=== PATIENT | male | born 1970 | race Caucasian/White ===

== ENCOUNTER → 2018-01-10 12:20 | Outpatient (CLI) | payer OTHER, SELFPAY ==
[2018-01-10 15:02] LABS: T4 Free Direct 0.95 ng/dL (0.76-1.46); Thyroid Stim Hormone (TSH) 4.16 uIU/mL (0.358-3.74)
[2018-01-14 12:07] LABS: Testosterone, Free 15.87 ng/dL (5.00-21.00)
[2018-01-15 08:56] LABS: Testosterone, % Free 2.86 % (1.50-4.20); Testosterone, Total 555 ng/dL (264-916)
== END ==
PROVIDERS: Family Provider Family Medicine; PCP Family Medicine; Visit Provider Family Medicine
DX: E03.9 Hypothyroidism, unspecified (principal); R53.83 Other fatigue
CPT/HCPCS: 36415; 84402; 84403; 84439; 84443

== ENCOUNTER → 2018-05-01 13:52 | Outpatient (CLI) | payer OTHER, SELFPAY ==
[2018-05-01 15:55] LABS: Thyroid Stim Hormone (TSH) 1.84 uIU/mL (0.358-3.74)
--- OUTSIDE RECORDS SUMMARY | 2018-07-06 10:47 | XMS RPT_ITS ---
:1970 Author Organization OHIP Care Team Providers Name Role Phone Shaq Kiran Attending Unavailable Shaq Kiran Primary Care Unavailable Shaq Kiran Attending Unavailable Shaq Kiran Primary Care Unavailable WILFREDO HOPE Attending Unavailable MURIEL V, VERENICE TUTU Attending Unavailable SHAQ KIRAN Referring Unavailable MURIEL V, VERENICE TUTU Referring Unavailable SHAQ KIRAN Primary Care Unavailable WILFREDO HOPE Attending Unavailable MURIEL, VERENICE-TUTU Attending Unavailable SHAQ KIRAN Referring Unavailable SHAQ KIRAN Primary Care Unavailable MURIEL, VERENICE-TUTU Referring Unavailable SHAQ KIRAN Primary Care Unavailable MURIEL, VERENICE-TUTU Referring Unavailable SHAQ KIRAN Primary Care Unavailable PROBLEMS PROBLEMS DATE TYPE CONDITION / CODE ATTENDING STATUS SOURCE 05/01/2018 Unknown E03.9 - Magno, Sandy 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) [facility] Repository 01/29/2018 Admitting Unknown / NA Active [facility] diagnosis UNK(Unknown) Health System Repository 01/25/2018 Active Personal history of WILFREDO HOPE Active Lohman diseases of the Clinic Other blood and [facility] blood-forming Repository organs and certain disorders involving the immune mechanism / Z86.2(ICD-10) 01/25/2018 Active Postprocedural WILFREDO HOPE Active Ball hemorrhage of a Clinic Other digestive system [facility] organ or structure Repository following a digestive system procedure / K91.840(ICD-10) PROCEDURES PROCEDURES No Procedure Records FoundRESULTS RESULTS THYROID STIM HORMONE Collected: 05/01/2018 Status: F Source: [facility] (TSH) 2:24 PM [facility] REPOSITORY TYPE CODE TESTS RESULT OUT OF RANGE REFERENCE UNITS LAB L501.9520 0.358-3.74 uIU/mL Normal TSH 1.84 Performed By: #### L501.9520 #### [facility] [address] [place], [place], [id number] ONCOLOGY VENIPUNCTURE Collected: 01/29/2018 Status: F Source: [facility] 10:15 AM HEALTH SYSTEM REPOSITORY TYPE CODE TESTS RESULT OUT OF REFERENCE UNITS RANGE LAB OVENP(LOIN C) Oncology Venipuncture COMPLETED Performed By: #### OVENP #### [address] [address] MISC. TEST Collected: 01/29/2018 Status: F Source: [facility] 10:15 AM HEALTH SYSTEM REPOSITORY TYPE CODE TESTS RESULT OUT OF REFERENCE UNITS RANGE LAB GO3X(LOINC) Test Name FACTOR IX:C LAB GO1X(LOINC) [facility] Order FIXC Code LAB GO2X(LOINC) Misc. Test SEE BELOW Result Result Comment: Factor IX:C Assay 3 L 77-173 % Result rechecked. Reviewed by Sherrie Wilson M.D.,Ph.D ([id number]) Called to and read back by: Valentin Damon [facility] 01/31/18 Cassidy Oseguera Performing Laboratory: [facility] [address] [place] [address] Performed By: #### GOX #### [place] [id number] PROGRESS Observed: 01/29/2018 Status: COMPLETED Source: [facility] 9:52 AM CLINIC OTHER CAMPUS REPOSITORY HNO ID: [id number] Author: Verenice Llamas Service: (none) Author Type: Physician Type: Progress Notes Filed: 01/30/2018 4:08 PM Note Text: INITIAL CONSULT Angela Mays 1970 January 29, 2018 HPI: Angela Mays is a 47 year old male who presents after a dental procedure with bleeding: diagnosed at age 9: Had bleeding after Adenoid surgery: When seen today bleeding has stopped: Will order Factor IX levels. Pathology Cancer Staging No matching staging information was found for the patient. PAST MEDICAL HISTORY Diagnosis Date - Toxic diffuse goiter without mention of thyrotoxic crisis or storm No past surgical history on file. Current Outpatient Prescriptions: levothyroxine (LEVOXYL) 100 mcg tablet Take 122 mcg by mouth once daily. Disp: Rfl: No current facility-administered medications for this visit. ALLERGIES Allergen Reactions - Asa [Salicylates] Hemophilia No family history on file. Social History Marital status: Spouse name: Years of education: Number of children: Social History Main Topics Smoking status: Never Smoker Smokeless tobacco: Never Used Alcohol use: Yes Comment: rare Review of Systems: Constitutional: No fevers, chills, drenching night sweats or unintentional weight loss. HEENT: No yellowing of the eyes, no vision changes, no hearing loss or ear pain, no nosebleeds or drainage, no sore throat. Neck: No complaints. Chest: No SOB or cough, no LOPES, no hemoptysis, no wheezing. Breast: No complaints. Heart: No chest pain, pressure or tightness. No racing heartbeat. Abdominal: No pain or difficulty with swallowing, no N/V, no early satiety, no abdominal pain or bloating, no diarrhea or constipation, no change in bowel habits, no blood in the urine. Genitourinary: No pain or burning with urination, no incontinence, no blood in the urine. Extremities: no pain or swelling. Neurological: No headaches, no numbness or tingling in the extremities, no double vision. Skin: No rashes or ulcerations, no change in pigmentation. Nodes: no enlargement per patient. Heme: No easy bruising or bleeding, no yellowing of the eyes or darkening of urine. Psychiatric: no anxiety or depression. Immunologic: No recurrent or persistent infections of the sinuses, lungs or urinary tract. Endocrine: No hair or nail changes, no polyuria, polydipsia, or polyphagia. Appetite normal. Trending of last 3 clinical abnormalities associated with Severe Sepsis or Septic Shock 01/25/2018 2335 01/26/2018 0432 01/29/2018 0928 Temp: 36.4 ?C (97.5 ?F) - 36.6 ?C (97.9 ?F) Pulse: 74 62 69 Resp: 16 18 - BP: 156/82 133/93 110/70 O2 Sat: 97 % 100 % 99 % BP 110/70[left arm[ Pulse 69 Temp 97.9 Ht 5' 9 (1.75m) Wt 159 lb (72.1kg) SpO2 99% BMI 23.47 kg/(m2). Physical Exam: ECOG PS: 0 Pain Intensity: 0/10 General: Age-appropriate well developed. Appears well. HEENT: Normocephalic, no sclera icterus, external ears normal, oral cavity clear. Neck: Supple, no thyroid nodules, no JVD. Chest: Clear bilaterally, no wheezes, not labored. Heart: Normal S1 and S2, no abnormal sounds, peripheral pulses synchronized. Abdomen: Soft, nontender, nondistended, bowel sounds present, no organomegaly or mass, no rigidity. /Rectal: deferred Extremities: No cyanosis, clubbing, gross deformities, or palpable cords. Neurological: Cranial nerves II through XII are intact bilaterally, strength normal in the upper and lower extremities, no focal deficits. Skin: Warm and dry with no rashes or ulcerations. Nodes: No palpable adenopathy in the cervical, supraclavicular, infraclavicular, or axillary regions. Hematologic: no bruising or petechiae. Psychiatric: Alert and oriented x3. Emotional well-being assessment was performed. Pt denies depression, distress, and or problems with coping or adjustment. 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 Harpreet Llamas MD CNOVSP Observed: 01/29/2018 Status: COMPLETED Source: [facility] 9:45 AM CLINIC OTHER CAMPUS REPOSITORY Visit (SP) Office (HEMAPOB) ANGELA MAYS ([id number]) 1970 M Date Time Provider Department 01/29/18 9:45 AM VERENICE LLAMAS HEMAPOB During your visit today, we recorded the following information about you: Temperature Pulse Blood pressure Weight 97.9 degrees 69/minute 110/70 72.1 kg Height 1.753 m Harpreet Llamas MD 01/30/2018 4:08 PM Signed INITIAL CONSULT Angela Talaverafaviola 1970 January 29, 2018 HPI: Angela Mays is a 47 year old male who presents after a dental procedure with bleeding: diagnosed at age 9: Had bleeding after Adenoid surgery: When seen today bleeding has stopped: Will order Factor IX levels. Pathology Cancer Staging No matching staging information was found for the patient. PAST MEDICAL HISTORY Diagnosis Date - Toxic diffuse goiter without mention of thyrotoxic crisis or storm No past surgical history on file. Current Outpatient Prescriptions: levothyroxine (LEVOXYL) 100 mcg tablet Take 122 mcg by mouth once daily. Disp: Rfl: No current facility-administered medications for this visit. ALLERGIES Allergen Reactions - Asa [Salicylates] Hemophilia No family history on file. Social History Marital status: Spouse name: Years of education: Number of children: Social History Main Topics Smoking status: Never Smoker Smokeless tobacco: Never Used Alcohol use: Yes Comment: rare Review of Systems: Constitutional: No fevers, chills, drenching night sweats or unintentional weight loss. HEENT: No yellowing of the eyes, no vision changes, no hearing loss or ear pain, no nosebleeds or drainage, no sore throat. Neck: No complaints. Chest: No SOB or cough, no LOPES, no hemoptysis, no wheezing. Breast: No complaints. Heart: No chest pain, pressure or tightness. No racing heartbeat. Abdominal: No pain or difficulty with swallowing, no N/V, no early satiety, no abdominal pain or bloating, no diarrhea or constipation, no change in bowel habits, no blood in the urine. Genitourinary: No pain or burning with urination, no incontinence, no blood in the urine. Extremities: no pain or swelling. Neurological: No headaches, no numbness or tingling in the extremities, no double vision. Skin: No rashes or ulcerations, no change in pigmentation. Nodes: no enlargement per patient. Heme: No easy bruising or bleeding, no yellowing of the eyes or darkening of urine. Psychiatric: no anxiety or depression. Immunologic: No recurrent or persistent infections of the sinuses, lungs or urinary tract. Endocrine: No hair or nail changes, no polyuria, polydipsia, or polyphagia. Appetite normal. Trending of last 3 clinical abnormalities associated with Severe Sepsis or Septic Shock 01/25/2018 2335 01/26/2018 0432 01/29/2018 0928 Temp: 36.4 ?C (97.5 ?F) - 36.6 ?C (97.9 ?F) Pulse: 74 62 69 Resp: 16 18 - BP: 156/82 133/93 110/70 O2 Sat: 97 % 100 % 99 % BP 110/70[left arm[ Pulse 69 Temp 97.9 Ht 5' 9 (1.75m) Wt 159 lb (72.1kg) SpO2 99% BMI 23.47 kg/(m2). Physical Exam: ECOG PS: 0 Pain Intensity: 0/10 General: Age-appropriate well developed. Appears well. HEENT: Normocephalic, no sclera icterus, external ears normal, oral cavity clear. Neck: Supple, no thyroid nodules, no JVD. Chest: Clear bilaterally, no wheezes, not labored. Heart: Normal S1 and S2, no abnormal sounds, peripheral pulses synchronized. Abdomen: Soft, nontender, nondistended, bowel sounds present, no organomegaly or mass, no rigidity. /Rectal: deferred Extremities: No cyanosis, clubbing, gross deformities, or palpable cords. Neurological: Cranial nerves II through XII are intact bilaterally, strength normal in the upper and lower extremities, no focal deficits. Skin: Warm and dry with no rashes or ulcerations. Nodes: No palpable adenopathy in the cervical, supraclavicular, infraclavicular, or axillary regions. Hematologic: no bruising or petechiae. Psychiatric: Alert and oriented x3. Emotional well-being assessment was performed. Pt denies depression, distress, and or problems with coping or adjustment. Labs No results found for: HB, HCT, WBC No results found for: GLUC, K, NA, CHLOR, CO2, CREAT, BUN, ANION, CA, TPROT, ALB, TBILI, ALKPHOS, AST, ALT CBC with diff: No results found for this basename: WBC,RBC,HB,HCT,MCV,MCH,MCHC,RDWCV,PLT,MPV,NEUTP,LYMPHP,MONOP,EODINP,BASOP,ABSNE- UT,ABSLYM,ABSMONO,ABSEOSIN,ABSBASO ASSESSMENT/PLAN: 1. 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 Said he was seen in an ER recently and they would not give him some medicine he wanted. Has not seen anyone here in years but would like to see someone as soon as possible and/or get an appropriate referral to where he would be best suited. Please advise, Thank you, Robbin Ramirez Psr Radha Beavers LPN 01/28/2018 8:44 AM Signed Spoke with patient. He has never been seen here. History of hemophilia but has not had a burrer operator since childhood. Had tooth extraction 01/23/2018 and has some bleeding. Dentist aware and patient was instructed to hold pressure. Was seen in [facility] ED 01/25/2018, they applied TXA topically and did not feel that a factor 9 transfusion was necessary. Patient was instructed upon discharge from ED to follow up with PCP and Dr. Peg Berg (Hem/Onc). Reiterated these instructions with the patient with verbalized understanding. Radha Kohler Psr 01/28/2018 8:39 AM Signed 1st attempt to reach patient. Left message to return office call. Viridiana Antunez LPN, ROEL 01/28/2018 10:20 AM Signed Office contacted by Dr. Kiran office, requesting pt. Be seen today. Referred to Dr. Peg Berg office, as pt needs factor 5, which we do not carry here. Dr. Kiran office given phone number to contact them. Viridiaan Antunez LPN Allergies As of Date: 01/28/2018 Noted Allergy Reaction ASA (SALICYLATES) 05/03/2005 Comments: Hemophilia Date Reviewed: 01/25/2018 Reviewed by: Fabrizio (Rn) MICHOACANO Alejandre - Fully Assessed Reason for Visit: Question [1327] Prescriptions as of 01/28/2018 Sig: LEVOTHYROXINE 100 MCG TABLET Take 122 mcg by mouth once da* Problem List As Of Date 01/28/2018 Noted Resolved POSTABLAT HYPOTHYR NEC [E89.0] Encounter Status:Closed by RADHA BEAVERS LPN on 01/28/18 ED NOTE Observed: 01/26/2018 Status: COMPLETED Source: [place] 4:21 AM [facility] REPOSITORY HNO ID: [id number] Author: Sweetie Guerrero RN Service: Nursing Author Type: Registered Nurse Type: ED Notes Filed: 01/26/2018 4:32 AM Note Text: Dr Glass at bedside for medication. ED NOTE Observed: 01/26/2018 Status: COMPLETED Source: [place] 3:40 AM [facility] REPOSITORY HNO ID: [id number] Author: Sweetie Guerrero RN Service: Nursing Author Type: Registered Nurse Type: ED Notes Filed: 01/26/2018 3:40 AM Note Text: Patient appears to be resting comfortably in bed. No complaints at this time. Bed in lowest position and locked. Call light within reach. Will continue to monitor. ED NOTE Observed: 01/26/2018 Status: COMPLETED Source: [place] 1:24 AM [facility] OTHER [place] REPOSITORY HNO ID: [id number] Author: Sweetie Vargas) MICHOACANO Guerrero Service: Nursing Author Type: Registered Nurse Type: ED Notes Filed: 01/26/2018 1:28 AM Note Text: Dr Glass notified of cyklokapron at bedside. ED PROV NOTE Observed: 01/26/2018 Status: COMPLETED Source: [place] 12:21 AM [facility] REPOSITORY HNO ID: [id number] Author: Nilda Glass MD Service: Emergency Medicine Author Type: Resident Type: ED Provider Notes Filed: 01/26/2018 8:03 AM Note Text: Attestation signed by Wilfredo Hope DO at 01/28/2018 11:18 PM Signature: Wilfredo Hope DO Date: 01/28/2018 Time: 11:17 PM ED Provider Note Patient Name: Angela Mays SERVICE DATE: 01/25/18 History Patient presents with: Post Op Bleeding: Pt states he has a tooth pulled on Sunday AND has had intermittent bleeding ever since. Pt has a hx hemophilia. 47 yo male with PMHx hemophilia type B presents for bleeding after dental extraction. 2 days ago had left lower posterior molar removed. Since then has had slow oozing of bright red blood. Patient has been applying pressure with guaze and has tried using tea bags which has worked in the past for minor tongue lacerations. States that whenever he removes the guaze the clot that had formed falls off and fresh blood oozes out. Patient followed up with dentist today who recommended continuing to apply pressure. Patient called the pharmacy here for advise about other things to try and was told to present to the ED for evaluation. No significant pain at extraction site, swelling, or purulent drainage. No associated headache, lightheadedness, chest pain, shortness of breath. No other bleeding such as hematuria or blood in stool. Patient states he has only had a bleeding issue once as a child when he was diagnosed and transfused factor 9, since then as not had any major bleeding issues. Does not currently have a burrer operator. PAST MEDICAL HISTORY Diagnosis Date - Toxic diffuse goiter without mention of thyrotoxic crisis or storm No past surgical history on file. No family history on file. Social History Social History Main Topics - Smoking status: Never Smoker - Smokeless tobacco: Never Used - Alcohol use Yes Comment: rare - Drug use: Unknown - Sexual activity: Not on file ALLERGIES Allergen Reactions - Asa [Salicylates] Hemophilia Review of Systems Constitutional: Negative for fever. HENT: Positive for dental problem (bleeding from tooth extraction). Negative for sore throat. Respiratory: Negative for shortness of breath. Cardiovascular: Negative for chest pain. Gastrointestinal: Negative for abdominal pain, blood in stool, nausea and vomiting. Genitourinary: Negative for dysuria and hematuria. Musculoskeletal: Negative for arthralgias and myalgias. Skin: Negative for color change, pallor and rash. Neurological: Negative for dizziness, syncope, weakness, numbness and headaches. Physical Exam BP 156/82 Pulse 74 Temp (Src) 97.5 (Oral) Resp 16 Ht 5' 9 (1.75m) Wt 165 lb (74.8kg) SpO2 97% BMI 24.36 kg/(m2). Physical Exam Constitutional: He appears well-developed. No distress. HENT: Head: Normocephalic and atraumatic. Left lower posterior gum with post dental extraction sutures, small area to medial aspect with bright red bleeding beneath small clot Eyes: Pupils are equal, round, and reactive to light. Conjunctivae and EOM are normal. Neck: Normal range of motion. Cardiovascular: Normal rate, regular rhythm, normal heart sounds and intact distal pulses. Pulmonary/Chest: Effort normal and breath sounds normal. He has no wheezes. He exhibits no tenderness. Abdominal: Soft. Bowel sounds are normal. He exhibits no distension. There is no tenderness. Musculoskeletal: Normal range of motion. He exhibits no edema. Lymphadenopathy: He has no cervical adenopathy. Neurological: He is alert. No cranial nerve deficit. He exhibits normal muscle tone. Skin: Skin is warm and dry. Capillary refill takes less than 2 seconds. Vitals reviewed. Diagnostic Testing ED Labs Ordered and Reviewed - No data to display Procedures ED Course / Clinical Impression Clinical Impressions as of Jan 26 719 History of hemophilia B Surgical wound hemorrhage after dental procedure MDM / Disposition / Plan 47 yo male with PMHx hemophilia type B presents for bleeding after dental extraction. Vital signs within normal limits. On physical exam left lower posterior gum line has post dental extraction sutures with small area of oozing blood under small clot. Patient has no associated symptoms or other physical findings of significant anemia. Discussed patient with ED pharmacist who explained trying topical measure for bleeding control. Patient is stable and does not need emergent factor 9 transfusion at this time. TXA applied topically to dental extraction site. On re-evaluation bleeding was controlled initially but then restated shortly afterwards. Discussed plan with patient to discharge home with TXA soaked gauze in place overnight into the morning before removal. Patient was not satisfied with plan. Had to explain to patient and his family why a factor 9 transfusion is still not indicated given bleeding is not severe and there are still topical interventions that can be tried. Applied guaze with both neosynephrin and TXA. On reevaluation bleeding controlled. Gauze left in place and patient instructed to remove after several hours. Given contact information for hematology for follow up. Return precautions discussed. The patient was DISCHARGED: Counseled patient and family regarding suspected diagnosis AND need for follow-up. Discharged home with verbal and written instructions. They were instructed to return as needed for persistent or worsening symptoms or any new concerns. Condition at time of disposition: stable SIGNATURE: MD Nilda Duffy (Res) MD Maria Luisa Resident 01/26/18 0803 Wilfredo Hope DO 01/28/18 2318 ED PROV NOTE Observed: 01/26/2018 Status: COMPLETED Source: [facility] 12:16 AM [facility] OTHER CAMPUS REPOSITORY O ID: [id number] Author: Wilfredo Hope DO Service: Emergency Medicine Author Type: Physician Type: ED Provider Notes Filed: 01/26/2018 12:20 AM Note Text: Attending Note I evaluated the patient and personally participated in the rao components. I agree with the resident's findings and plan as documented and have discussed the case and management of the patient's care with the resident. 47-year-old male with history of hemophilia B presents with bleeding from the left lower tooth after having an extraction done 2 days ago. The patient states that his dentist is aware that he has hemophilia B. He states that he has only required factor IX transfusion once as a child for a knee hemarthrosis. He states that he has been using teabags and gauze and is still having minor oozing. He did follow up with his dentist today who told him to continue using pressure with gauze. He denies any significant pain. He denies any difficulty breathing or swallowing. He has no other bleeding from any other site and no joint swelling. He was unsure if he required factor IX at this point, so he presents for evaluation. On exam, vital signs reviewed. Patient is afebrile and nontoxic appearing. Alert and oriented ?3 answering questions appropriately. Skin is warm and dry with no rash or diaphoresis. No jaundice or scleral icterus. Posterior pharynx widely patent, uvula midline. There is no drooling stridor or trismus. There is very small amount of oozing with associated clot to the left lower second molar. There is no diffuse bleeding. There are sutures in place. Neck supple no JVD. Trachea midline. Head atraumatic and normocephalic. PERRLA, EOMI. Heart regular rate and rhythm with no murmurs rubs or gallops. Lungs clear bilaterally with no wheezing rales or rhonchi. Abdomen soft nontender no palpable masses or peritoneal signs. Bowel sounds present. Distal pulses intact and symmetric in all 4 extremities. No lower extremity edema. No unilateral leg swelling. Cranial nerves II through XII intact. Medical decision-makin-year-old male presenting with bleeding from the left lower second molar after extraction 2 days ago. Is not having significant pain, so I do not think there is any related alveolar osteitis. There is only very small amount of using, so we will attempt topical treatments first as opposed to going straight to factor IX. The patient will be reassessed after using topical coagulants. Wilfredo Hope DO 01/26/18 0020 ED TRIAGE NOTE Observed: 01/25/2018 Status: COMPLETED Source: [place] 11:37 PM [facility] OTHER CAMPUS REPOSITORY HNO ID: [id number] Author: Ladan Polanco Service: Emergency Medicine Author Type: Physician Hand Dry Cleaner Type: ED Triage Notes Filed: 01/25/2018 11:39 PM Note Text: ED INTAKE NOTE Patient Name: Angela Mays Service Date: 01/25/18 BRIEF HPI: Patient is a 47 y/o M who presents to the ED for an evaluation of mouth bleeding from where a tooth was extracted on Sunday. He reports it has been bleeding since then, but was significantly worse today. He reports it begins to clot and then comes off. He reports having a history of hemophilia. He denies being on blood thinners. BRIEF EXAM: Constitutional: Well developed, well nourished, NAD HEENT: Normocephalic, atraumatic, active bleeding from left lower tooth extraction, no trismus Respiratory: No respiratory distress Cardiac: RRR Neuro: AANDOx3 Skin: Warm and dry INTAKE WORKUP: Deferred SIGNATURE: Ladan Polanco PA-C THYROID STIM HORMONE Collected: 01/10/2018 Status: F Source: [place] (TSH) 12:25 PM [facility] REPOSITORY Order Comment: Order Date: 12/25/17 Order Info: 3016-3 - TSH Order Info: 3024-7 - T4F Has Patient had X-rays with Contrast this admission? N TYPE CODE TESTS RESULT OUT OF RANGE REFERENCE UNITS LAB L501.9520 0.358-3.74 uIU/mL High TSH 4.16 Performed By: #### L501.9520, L506.0400 #### [facility] [address] [place], [address] T4 FREE DIRECT Collected: 01/10/2018 Status: F Source: [place] 12:25 PM [facility] REPOSITORY Order Comment: Order Date: 12/25/17 Order Info: 3016-3 - TSH Order Info: 3024-7 - T4F Has Patient had X-rays with Contrast this admission? N TYPE CODE TESTS RESULT OUT OF RANGE REFERENCE UNITS LAB L506.0400 0.76-1.46 ng/dL Normal T4 FREE 0.95 DIRECT Performed By: #### L501.9520, L506.0400 #### [facility] [address] [place], [address] TESTOSTERONE, TOTAL / Collected: 01/10/2018 Status: F Source: [place] FREE 12:25 PM [facility] REPOSITORY Order Comment: Has Patient had X-rays with Contrast this admission? N TYPE CODE TESTS RESULT OUT OF RANGE REFERENCE UNITS LAB L3100.5320 264-916 ng/dL Normal 555 TESTOSTER,TO PAPA Result Comment: Adult male reference interval is based on a population of healthy nonobese males (BMI <30) between 19 and 39 years old. Estefania et.al. JCEM 2017,102;1523-1473. PMID: [id number]. LAB L3100.5340 5.00-21.00 ng/dL TESTOSTER,FREE Normal 15.87 LAB L3100.5360 1.50-4.20 % TESTOSTER %FREE Normal 2.86 Result Comment: Performed at: [facility] [id number] Dietary Tech: Bill Gorman PhD, Phone: [phone] Performed at: [facility] [id number] Dietary Tech: Bernardo Camacho MD, Phone: [phone] Performed By: #### L3100.5310 #### [facility] (refer to report for specific site) refer to report for address and phone number ALLERGIES ALLERGIES DATE TYPE / CODE NAME / CODE REACTION SEVERITY SOURCE 05/03/2005 Drug SALICYLATES [facility] Class/08928 Other [place] 1003(SNOMED Repository CT) [id number] SALICYLATES [place] [address]([email or web address] System CT) Repository ENCOUNTERS ENCOUNTERS ADMIT/DISCHARGE ACCOUNT NUMBER ADMITTING ENCOUNTER LOCATION SOURCE CLASS 05/01/[id number] [facility] ding:MFPLAB Repository 02/01/2018 [id number] Ambulatory [facility] MEDICAL Repository CENTERBuildi ng:AKCTC 01/29/2018 [id number] Ambulatory [facility] Repository 01/29/2018/01/30/20 [id number] Ambulatory [address] MEDICAL Repository CENTERBuildi ng:AKLPB 01/29/2018/01/30/20 [id number] Ambulatory [address] Repository 01/29/2018/01/30/20 [id number] Ambulatory [address] MEDICAL Repository CENTERBuildi ng:HEOP 01/25/2018/01/27/20 [id number] Emergency [address] Repository 01/25/2018/01/27/20 [id number] Emergency [address] MEDICAL Repository CENTERBuildi ng:AKEDRoom: EMBed: 23 01/10/2018 [id number] Ambulatory [facility] ding:MFPLAB Repository PAYERS PAYERS ENCOUNTER GUARANTOR PAYER SUBSCRIBER SOURCE 05/01/2018 Angela Mays1414 Primary EMELIA M [address]D[place] [place] [address], Insurance:[employer] [id number] [facility] [address]Sie: Number: [facility] [id number] Repository (HP) Date:[id number] [address], [place] [address]RR: 05/01/2018 [facility]LF [facility] Number: Effective Repository Date:2018-05-01 01/29/2018 ANGELA Mandujano Primary [facility] Insurance:CIGNA PAYER [id number] [facility] SOLUTIONS PPOPolicy Repository [address], Number: [id number]: [id number] Date: (HP) 01/29/2018 ANGELA Mandujano Primary EMELIA KAMPHDOB: [facility] KAMPHDOB: Insurance:CIGNA PAYER [id number] [facility] SOLUTIONS PPOPolicy Repository [address], Number: [id number]: [id number] Date: (HP) 01/25/2018 ANGELA Mandujano Primary EMELIA KAMPHDOB: [facility] KAMPHDOB: Insurance:CIGNA PAYER [id number] [facility] SOLUTIONS PPOPolicy Repository [address], Number: [id number]: [id number] Date: (HP) 01/10/2018 Angela Mays1414 Primary EMELIA M KAMPHDOB: [place] [address], Insurance:[employer] [id number] [facility] [place] [address]Wer: Number: [facility] [id number] Repository (HP) Date:[id number] [address], [place] [address]AB: 01/10/2018 Secondary NOT GIVENUNK [place] Insurance:SELF PAY [facility]: Effective Repository Date:2018-01-10
== END ==
PROVIDERS: Family Provider Family Medicine; PCP Family Medicine; Visit Provider Family Medicine
DX: E03.9 Hypothyroidism, unspecified (principal)
CPT/HCPCS: 36415; 84443

== ENCOUNTER → 2019-10-22 12:13 | Outpatient (CLI) | payer OTHER, SELFPAY ==
[2019-10-22 15:56] LABS: Free T3 2.5 pg/mL (2.18-3.98); T4 Free Direct 0.91 ng/dL (0.76-1.46); Thyroid Stim Hormone (TSH) 4.73 uIU/mL (0.358-3.74)
== END ==
PROVIDERS: PCP Family Medicine; Referring Provider Family Medicine; Visit Provider Family Medicine
DX: E03.9 Hypothyroidism, unspecified (principal)
CPT/HCPCS: 36415; 84439; 84443; 84481

== ENCOUNTER → 2020-06-22 10:21 | Outpatient (CLI) | payer OTHER, SELFPAY ==
[2020-06-23 08:37] LABS: SARS-COV-2 TOTAL ABS Nonreactive (Nonreactive)
== END ==
PROVIDERS: PCP Family Medicine; Referring Provider Family Medicine; Visit Provider Family Medicine
DX: Z11.59 Encounter for screening for other viral diseases (principal)
CPT/HCPCS: 36415; 86769